=== PATIENT | female | born 1955 | race Caucasian/White ===

== ENCOUNTER 2019-05-18 13:58 | Outpatient (CLI) | payer MEDICARE, OTHER ==
--- NOTE | 2019-05-18 14:48 | MMO ---
Bilateral MAMMO Bilat Screen [facility]. CLINICAL HISTORY: Patient is 64 years old and is seen for screening. The patient has no family history of breast cancer. The patient has no personal history of cancer. The patient has a history of bilateral Implants in 1997. VIEWS: The views performed were: bilateral craniocaudal with tomosynthesis and bilateral mediolateral oblique with tomosynthesis. FILMS COMPARED: The present examination has been compared to a prior imaging study performed at [facility] on 05/27/2017. This study has been interpreted with the assistance of computer-aided detection. MAMMOGRAM FINDINGS: There are scattered fibroglandular densities. Finding 1: There are calcified implants seen in both breasts. Finding 2: There are stable benign appearing calcifications seen in both breasts. There are no suspicious masses, suspicious calcifications, or new areas of architectural distortion. IMPRESSION: THERE IS NO MAMMOGRAPHIC EVIDENCE OF MALIGNANCY. A ROUTINE FOLLOW-UP MAMMOGRAM IN 1 YEAR IS RECOMMENDED. THE RESULTS OF THIS EXAM WERE SENT TO THE PATIENT. ACR BI-RADS Category 2 - Benign finding MAMMOGRAPHY NOTE: 1. A negative mammogram report should not delay a biopsy if a dominant of clinically suspicious mass is present. 2. Approximately 10% to 15% of breast cancers are not detected by mammography. 3. Adenosis and dense breasts may obscure an underlying neoplasm. Reported by: SACHIN PALUMBO MD Electonically Signed: [id number]
== END 2019-05-18 13:59 | disposition home or self-care (01) ==
LOC: BICMAMMO 13:58
PROVIDERS: ATTEND Internal Medicine
DX: Z12.31 Encounter for screening mammogram for malignant neoplasm of breast (principal); Z98.82 Breast implant status
CPT/HCPCS: 77063; 77067

== ENCOUNTER 2019-06-10 12:49 | Emergency (ER) | payer MEDICARE, OTHER ==
[2019-06-10] MEDS ORDERED: Diazepam 5 MG TAB ONE (13:13)
[2019-06-10] MEDS ORDERED: Ketorolac Tromethamine 30 MG/ML VIAL ONE ×2 (13:19→14:50)
[2019-06-10] MEDS ORDERED: Morphine 4 MG/ML VIAL ONE ×2 (13:19→14:51)
--- NOTE | 2019-06-10 13:20 | RAD ---
Chest AP view INDICATION: Chest pain and neck pain COMPARISON: None FINDINGS: Lungs:The lungs are clear. There are bilateral partially calcified breast implants. Cardiac silhouette:The cardiomediastinal silhouette appears within normal limits. Pulmonary vasculature:Normal Pleural spaces:No pleural effusion or pneumothorax is demonstrated. Upper abdomen:No abnormality seen. Osseous structures: No acute osseous abnormality. Additional findings:Mild vascular calcification of the aortic arch. IMPRESSION: No acute cardiopulmonary abnormality.
--- NOTE | 2019-06-10 14:12 | CT ---
CT cervical spine without contrast: Multiple axial tones obtained through cervical spine with multiplanar reconstruction. INDICATIONS: Neck pain COMPARISON: none FINDINGS: Cervical vertebra maintain normal height. Slight anterolisthesis at C3-4. Facet hypertrophy. Disc space narrowing degenerative change noted at C5-6. No evidence of fracture. Posterior spondylosis at C5-6 effaces anterior subarachnoid space. Posterior elements are normally aligned. IMPRESSION: Degenerative changes, most pronounced at C5-6. No acute abnormality.
--- NOTE | 2019-06-12 21:19 | EKG ---
Test Reason : Blood Pressure : / mmHG Vent. Rate : 091 BPM Atrial Rate : 091 BPM P-R Int : 144 ms QRS Dur : 080 ms QT Int : 380 ms P-R-T Axes : 038 -62 038 degrees QTc Int : 467 ms Sinus rhythm with Premature atrial complexes Left anterior fascicular block Cannot rule out Anterior infarct , age undetermined Abnormal ECG Similar to 16-NOV-2015 Confirmed by JULISA MCDANIELS DO ([id number]), book or script editor RYAN GARCIA ([id number]) on 06/12/2019 9:19:05 PM Referred By: Confirmed By:JULISA MCDANIELS DO
== END 2019-06-10 15:08 | disposition home or self-care (01) ==
LOC: ERS 12:49
DX: M54.2 Cervicalgia (principal); I10 Essential (primary) hypertension; F17.210 Nicotine dependence, cigarettes, uncomplicated; Z79.899 Other long term (current) drug therapy
CPT/HCPCS: 71045; 72125; 93005; 96372; J1885; J2270

== ENCOUNTER 2020-12-20 12:02 | Outpatient (CLI) | payer MEDICARE ==
[2020-12-20 13:57] LABS: PTT 27.8 sec (22.0-33.0); Prothrombin Time 11.4 sec (9.5-12.1)
[2020-12-20 14:20] LABS: Platelet Count 190 thou/uL (130-400)
[2020-12-20 14:22] LABS: Hemoglobin 13.8 g/dL (12.0-15.5); Mean Corpuscular HGB CONC 31.9 g/dL (32.0-36.0); Mean Corpuscular Hemoglobin 30.5 pg (27.0-33.0); Mean Corpuscular Volume 95.8 fl (81.6-98.3); Mean Platelet Volume 10.3 fl (7.4-10.4); Platelet Count 187 10x3/uL (150-450); RBC Distribution Width 16.9 % (11.5-14.5); Red Blood Cell (RBC) Count 4.52 10x6/uL (3.90-5.03); White Blood Cell (WBC) Count 4.5 10x3/uL (3.5-10.5)
[2020-12-20 14:23] LABS: Anion Gap 19 mmol/L (10-20); BUN (Urea Nitrogen) 9 mg/dL (9.8-20.1); Calc. Creatinine Clearance 0 mL/min (70-130); Calcium 9.3 mg/dL (7.8-10.44); Carbon Dioxide 23 mmol/L (23-31); Chloride 101 mmol/L (98-107); Glucose 100 mg/dL (80-115); Potassium 4.1 mmol/L (3.5-5.1); Sodium 139 mmol/L (136-145)
[2020-12-20 14:47] LABS: EPI 133 SEC (67-199)
[2020-12-20 21:38] LABS: SARS-CoV-2 PCR by NAA Not Detected (NotDetected)
== END 2020-12-20 12:03 | disposition home or self-care (01) ==
LOC: LABBT 12:02
PROVIDERS: ATTEND Urology
DX: Z01.818 Encounter for other preprocedural examination (principal); N20.1 Calculus of ureter; Z20.822 Contact with and (suspected) exposure to COVID-19
CPT/HCPCS: 80048; 85027; 85576; 85610; 85730; 93005; U0003; U0005; 93010

== ENCOUNTER 2020-12-25 09:02 | Day surgery (SDC) | payer MEDICARE ==
[2020-12-25] MEDS ORDERED: Methylene Blue 50 MG/10 ML AMPUL ONE (09:36)
[2020-12-25] MEDS ORDERED: Midazolam HCl 2 mg/2 ml Vial ONE (09:36)
[2020-12-25] MEDS ORDERED: Fentanyl 100 MCG/2 ML VIAL ONE (09:36)
[2020-12-25] MEDS ORDERED: Iothalamate Meglumine 60% 50 ML VIAL FS ONE (11:37)
[2020-12-25] MEDS ORDERED: Rocuronium Bromide 10 MG/ML (10ML VIAL) ONE (11:55)
[2020-12-25] MEDS ORDERED: PROPOFOL 200 MG/20 ML VIAL ONE (11:55)
[2020-12-25] MEDS ORDERED: Dexamethasone 20 MG/5 ML VIAL ONE (11:55)
[2020-12-25] MEDS ORDERED: Albuterol Sulfate HFA (OR ONLY) ONE (12:45)
[2020-12-25] MEDS ORDERED: traMADol HCl 50 MG TAB ONE (15:16)
== END 2020-12-25 16:07 | disposition home or self-care (01) ==
LOC: SDC 09:02
PROVIDERS: ATTEND Urology
PROC: 0TF7XZZ Fragmentation in Left Ureter, External Approach (ICD-10-PCS; principal; 2020-12-25)
PROC: 0T778DZ Dilation of Left Ureter with Intraluminal Device, Via Natural or Artificial Opening Endoscopic (ICD-10-PCS; 2020-12-25)
DX: N20.1 Calculus of ureter (principal); I10 Essential (primary) hypertension; Z79.899 Other long term (current) drug therapy
CPT/HCPCS: 50590; 52332; 74018; C2617; Q9961; J0690; J1100; J2250; J2704; J3010; Q9968

== ENCOUNTER 2021-01-08 10:32 | Outpatient (CLI) | payer MEDICARE ==
[2021-01-08 12:20] LABS: Anion Gap 21 mmol/L (10-20); BUN (Urea Nitrogen) 13 mg/dL (9.8-20.1); Calc. Creatinine Clearance 0 mL/min (70-130); Calcium 9.6 mg/dL (7.8-10.44); Carbon Dioxide 21 mmol/L (23-31); Chloride 104 mmol/L (98-107); Glucose 92 mg/dL (80-115); Potassium 4.2 mmol/L (3.5-5.1); Sodium 142 mmol/L (136-145)
[2021-01-08 12:37] LABS: Hemoglobin 12.8 g/dL (12.0-15.5); Mean Corpuscular HGB CONC 31.4 g/dL (32.0-36.0); Mean Corpuscular Hemoglobin 31.1 pg (27.0-33.0); Mean Platelet Volume 10.7 fl (7.4-10.4); Platelet Count 177 10x3/uL (150-450); RBC Distribution Width 15.7 % (11.5-14.5); Red Blood Cell (RBC) Count 4.11 10x6/uL (3.90-5.03); White Blood Cell (WBC) Count 4.5 10x3/uL (3.5-10.5)
[2021-01-08 12:42] LABS: PTT 26.8 sec (22.0-33.0); Prothrombin Time 11.5 sec (9.5-12.1)
[2021-01-08 19:51] LABS: SARS-CoV-2 PCR by NAA Not Detected (NotDetected)
== END 2021-01-08 10:33 | disposition home or self-care (01) ==
LOC: LABBT 10:32
PROVIDERS: ATTEND Urology
DX: Z01.812 Encounter for preprocedural laboratory examination (principal); N20.1 Calculus of ureter; Z20.822 Contact with and (suspected) exposure to COVID-19
CPT/HCPCS: 80048; 85027; 85610; 85730; U0003; U0005

== ENCOUNTER 2021-01-11 10:08 | Day surgery (SDC) | payer MEDICARE ==
[2021-01-10 11:02] VITALS: BMI 28.7
[2021-01-11] MEDS ORDERED: Levofloxacin 500 mg/D5W 100 ml Premix Bag ONE (10:44)
[2021-01-11] MEDS ORDERED: Iothalamate Meglumine 60% 50 ML VIAL FS ONE (13:14)
[2021-01-11] MEDS ORDERED: Midazolam HCl 2 mg/2 ml Vial ONE (13:34)
[2021-01-11] MEDS ORDERED: Fentanyl 100 MCG/2 ML VIAL ONE ×3 (13:34→15:55)
[2021-01-11] MEDS ORDERED: Dexamethasone 20 MG/5 ML VIAL ONE (13:40)
[2021-01-11] MEDS ORDERED: PROPOFOL 200 MG/20 ML VIAL ONE (13:40)
[2021-01-11] MEDS ORDERED: Ondansetron PF 4 MG/2 ML Vial ONE (13:40)
[2021-01-11] MEDS ORDERED: traMADol HCl 50 MG TAB ONE (16:55)
== END 2021-01-11 17:30 | disposition home or self-care (01) ==
LOC: SDC 10:08
PROVIDERS: ATTEND Urology
PROC: 0TC78ZZ Extirpation of Matter from Left Ureter, Via Natural or Artificial Opening Endoscopic (ICD-10-PCS; principal; 2021-01-11)
PROC: 0T778DZ Dilation of Left Ureter with Intraluminal Device, Via Natural or Artificial Opening Endoscopic (ICD-10-PCS; 2021-01-11)
DX: N13.2 Hydronephrosis with renal and ureteral calculous obstruction (principal); N21.0 Calculus in bladder; I10 Essential (primary) hypertension; Z79.2 Long term (current) use of antibiotics; Z79.899 Other long term (current) drug therapy
CPT/HCPCS: 52356; 74018; 74420; Q9961; 82365; 88300; C2617; J1100; J1956; J2250; J2405; J2704; J3010

== ENCOUNTER 2021-03-16 10:49 | Day surgery (SDC) | payer MEDICARE ==
[2021-03-15 09:52] VITALS: BMI 29.2
[~2021-03-16 10:49] MED LIST: Sodium Chloride 0.9% 0 ML ONE; Sodium Chloride 0.9% 10 ML ONE; cefOXitin Sodium/Dextrose 2 GM/50 ML BAG ONE
[2021-03-16] MEDS ORDERED: Dexamethasone 20 MG/5 ML VIAL ONE (11:22)
[2021-03-16] MEDS ORDERED: Lidocaine 1% PF 5 ML VIAL ONE (11:22)
[2021-03-16] MEDS ORDERED: PROPOFOL 200 MG/20 ML VIAL ONE (11:22)
[2021-03-16] MEDS ORDERED: Ondansetron PF 4 MG/2 ML Vial ONE (11:22)
[2021-03-16] MEDS ORDERED: Rocuronium Bromide 10 MG/ML (10ML VIAL) ONE (11:22)
[2021-03-16] MEDS ORDERED: Midazolam HCl 2 mg/2 ml Vial ONE (11:25)
[2021-03-16] MEDS ORDERED: Fentanyl 100 MCG/2 ML VIAL ONE ×4 (11:25→13:27)
[2021-03-16] MEDS ORDERED: Bupivacaine 0.25% HCL 30 ML VIAL ONE (11:28)
[2021-03-16] MEDS ORDERED: Bacitracin Zinc Ointment 30 gm TUBE ONE (11:28)
[2021-03-16] MEDS ORDERED: Lidocaine 1% w/Epinephrine 1:100K 30 ML VIAL ONE (11:28)
[2021-03-16] MEDS ORDERED: HYDROcodone/Acetaminophen 5/325 mg Tablet ONE (13:56)
== END 2021-03-16 14:37 | disposition home or self-care (01) ==
LOC: SDC 10:49
PROVIDERS: ATTEND Surgery
PROC: 06BY0ZC Excision of Hemorrhoidal Plexus, Open Approach (ICD-10-PCS; principal; 2021-03-16)
DX: K64.2 Third degree hemorrhoids (principal); K64.4 Residual hemorrhoidal skin tags; I10 Essential (primary) hypertension; F17.200 Nicotine dependence, unspecified, uncomplicated; Z79.899 Other long term (current) drug therapy; Z98.890 Other specified postprocedural states
CPT/HCPCS: 88304; J0694; J1100; J2250; J2405; J2704; J3010; J3490; S0020

== ENCOUNTER 2021-05-01 14:23 | Emergency (ER) | payer MEDICARE ==
[~2021-05-01 14:23] MED LIST changes: +Iopamidol-370 76% 500 ML 1 ML ONE; -Sodium Chloride 0.9% 0 ML ONE; -Sodium Chloride 0.9% 10 ML ONE; -cefOXitin Sodium/Dextrose 2 GM/50 ML BAG ONE
[2021-05-01 15:07] LABS: Actual Bicarbonate (HCO3a) 13.4 mEq/L (22-28); Analyzer IN Cardio ER; Base Excess (BEa) -8.7 mEq/L (-2.0 to +3.0); Calcium, Ionized (arterial) 1.09 mmol/L (1.12-1.30); Carboxyhemoglobin (COHb) 2.1 gm% (0.0-3.0); Hemoglobin (Hb) 11.2 g/dL (12.0-16.0); O2 Tension (PaO2), arterial 73.4 mmHg (> 80.0); Potassium - ABG Lab 4.47 mmol/L (3.70-5.30); pH, Arterial 7.44 (7.35-7.45)
[2021-05-01 15:08] LABS: CO2 Tension 20.1 mmHg (35.0-45.0)
[2021-05-01] MEDS ORDERED: Ketorolac Tromethamine 30 MG/ML VIAL ONE (15:08)
[2021-05-01] MEDS ORDERED: Metoclopramide 10 MG/10 ML UDCUP ONE (15:08)
[2021-05-01] MEDS ORDERED: Morphine 4 MG/ML VIAL ONE (15:08)
[2021-05-01] MEDS ORDERED: Metoclopramide HCl 10 MG/2 ML VIAL ONE (15:09)
[2021-05-01 15:11] LABS: Puncture Site RBA
[2021-05-01 15:22] LABS: #Basophils 0.1 thou/uL (0.0-0.2); #Lymphocytes 1.5 thou/uL (1.20-3.40); #Neutrophils 7.5 thou/uL (1.40-6.50); %Basophils 0.6 % (0.0-1.0); %Eosinophils 0.1 % (0.0-10.0); %Lymphocytes 14.7 % (21.0-51.0); %Monocytes 10.1 % (0.0-10.0); %Neutrophils 74.5 % (42.0-75.0); Hemoglobin 12.2 g/dL (12.0-16.0); Mean Corpuscular HGB CONC 33.2 g/dL (32.0-36.0); Mean Corpuscular Hemoglobin 32.5 pg (27.0-31.0); Mean Platelet Volume 7.6 fL (7.4-10.4); Platelet Count 233 thou/uL (130-400); RBC Distribution Width 14.3 % (11.5-14.5); Red Blood Cell (RBC) Count 3.75 mill/uL (4.20-5.40)
[2021-05-01 15:37] LABS: ALT (SGPT) 14 U/L (8-55); AST (SGOT) 17 U/L (5-34); Albumin 3.9 g/dL (3.4-4.8); Alkaline Phosphatase 93 U/L (40-110); Anion Gap 24 mmol/L (10-20); BUN (Urea Nitrogen) 12 mg/dL (9.8-20.1); Calc. Creatinine Clearance 0 mL/min (70-130); Calcium 8.5 mg/dL (7.8-10.44); Carbon Dioxide 16 mmol/L (23-31); Chloride 101 mmol/L (98-107); Globulin 2.6 g/dL (2.4-3.5); Glucose 85 mg/dL (80-115); Lipase 24 U/L (8-78); Potassium 4.7 mmol/L (3.5-5.1); Protein, Total 6.5 g/dL (5.8-8.1); Sodium 136 mmol/L (136-145)
[2021-05-01] MEDS ORDERED: Ondansetron PF 4 MG/2 ML Vial ONE (16:36)
[2021-05-01] MEDS ORDERED: Midazolam HCl 2 mg/2 ml Vial ONE (16:36)
[2021-05-01] MEDS ORDERED: Sucralfate 1 GM/10 ML UDCUP ONE (16:48)
[2021-05-01] MEDS ORDERED: Famotidine/PF 20 mg/2ml Vial ONE (16:48)
[2021-05-01 16:59] LABS: Bilirubin 1+ (Negative); Blood, Urine Negative (Negative); Clarity Clear (Clear); Glucose, Urine (Dipstick) Normal (Negative); Ketone, Urine 100 mg/dL (Negative); Leukocyte 250 Leu/uL (Negative); Nitrite Negative (Negative); Protein, Urine (Dipstick) 30 mg/dL (Neg-Trace); RBC/HPF 0-3 HPF (0-3); Specific Gravity, Urine 1.047 (1.002-1.036); pH, Urine 5.5 (5.0-9.0)
[2021-05-01 17:06] LABS: Bacteria/HPF 1+ HPF (None Seen); Yeast-Budding Rare HPF (None Seen); Yeast-Hyphae 1+ HPF (None Seen)
== END 2021-05-01 18:25 | disposition home or self-care (01) ==
LOC: ERS 14:23
DX: K29.00 Acute gastritis without bleeding (principal); B37.3 Candidiasis of vulva and vagina; N39.0 Urinary tract infection, site not specified; E86.0 Dehydration; I10 Essential (primary) hypertension; D58.9 Hereditary hemolytic anemia, unspecified; F17.210 Nicotine dependence, cigarettes, uncomplicated; Z79.899 Other long term (current) drug therapy
CPT/HCPCS: 36415; 36600; 71045; 74177; 76705; 80053; 81003; 81015; 82805; 83690; 84484; 85025; 93005; 96374; 96375; J1885; J2250; J2270; J2405; J2765; S0028

== ENCOUNTER 2021-11-18 20:51 | Inpatient (IN) | payer MEDICARE ==
[2021-11-18 21:41] LABS: #Basophils 0.1 thou/uL (0.0-0.2); #Lymphocytes 1.1 thou/uL (1.20-3.40); #Monocytes 0.4 thou/uL (0.11-0.59); #Neutrophils 2.8 thou/uL (1.40-6.50); %Basophils 1.7 % (0.0-1.0); %Eosinophils 0.5 % (0.0-10.0); %Lymphocytes 24.7 % (21.0-51.0); %Monocytes 8.7 % (0.0-10.0); %Neutrophils 64.4 % (42.0-75.0); Mean Corpuscular HGB CONC 32.6 g/dL (32.0-36.0); Mean Corpuscular Hemoglobin 33.7 pg (27.0-31.0); Mean Platelet Volume 7.4 fL (7.4-10.4); Platelet Count 159 thou/uL (130-400); RBC Distribution Width 12.9 % (11.5-14.5); Red Blood Cell (RBC) Count 3.56 mill/uL (4.20-5.40); White Blood Cell (WBC) Count 4.3 thou/uL (4.8-10.8)
[2021-11-18 22:01] LABS: ALT (SGPT) 22 U/L (8-55); AST (SGOT) 31 U/L (5-34); Albumin 4.2 g/dL (3.4-4.8); Alkaline Phosphatase 72 U/L (40-110); Anion Gap 25 mmol/L (10-20); BUN (Urea Nitrogen) 13 mg/dL (9.8-20.1); Calc. Creatinine Clearance 0 mL/min (70-130); Calcium 8.1 mg/dL (7.8-10.44); Carbon Dioxide 15 mmol/L (23-31); Chloride 99 mmol/L (98-107); Globulin 2.1 g/dL (2.4-3.5); Potassium 4.7 mmol/L (3.5-5.1); Protein, Total 6.3 g/dL (5.8-8.1); Sodium 134 mmol/L (136-145)
[2021-11-18 22:02] LABS: CK (CPK) 33 U/L (29-168); CRP (Inflammatory) Less than 0.50 mg/dL (= or < 0.5)
[2021-11-18 22:09] LABS: Glucose 59 mg/dL (80-115)
[2021-11-18 22:33] LABS: Bilirubin Negative (Negative); Blood, Urine Negative (Negative); Clarity Turbid (Clear); Glucose, Urine (Dipstick) Normal (Negative); Ketone, Urine 80 mg/dL (Negative); Leukocyte 250 Leu/uL (Negative); Nitrite Negative (Negative); Protein, Urine (Dipstick) Negative (Neg-Trace); RBC/HPF 0-3 HPF (0-3); Specific Gravity, Urine 1.009 (1.002-1.036); Urobilinogen Normal mg/dL (Less than 2); Yeast-Hyphae Rare HPF (None Seen)
[2021-11-18 22:39] LABS: Bacteria/HPF 2+ HPF (None Seen)
[2021-11-18 22:40] LABS: Yeast-Budding 2+ HPF (None Seen)
[2021-11-18] MEDS ORDERED: Ondansetron PF 4 MG/2 ML Vial ONE (23:01)
[2021-11-18] MEDS ORDERED: cefTRIAXone\\ROCEPHIN 1 GM VIAL ONE (23:47)
[2021-11-19 00:14] LABS: Acetaminophen Less than 10.0 mcg/mL (10.0-30.0); Alcohol Less than 10 mg/dL (Less than 10); Salicylate Less than 8.0 mg/dL (15.0-30.0)
[2021-11-19 00:46] LABS: Amphetamine Not Detected (NotDetected); Barbiturates Screen Not Detected (NotDetected); Benzodiazepine Screen Not Detected (NotDetected); Cocaine Metabolite Screen Detected (NotDetected); Methadone Not Detected (NotDetected); Methamphetamine Not Detected (NotDetected); Opiate Screen Not Detected (NotDetected); Oxycodone Screen Not Detected (NotDetected); Phencyclidine (PCP) Not Detected (NotDetected); THC/Cannabinoid Screen Not Detected (NotDetected); Tricyclic Screen Not Detected (NotDetected)
[2021-11-19] MEDS ORDERED: Acetaminophen 325 MG TAB PO PRN (01:15)
[2021-11-19] MEDS ORDERED: Ondansetron ODT 4 MG TAB SL PRN (01:15)
[2021-11-19] MEDS ORDERED: Ondansetron PF 4 MG/2 ML Vial IVP PRN (01:15)
[2021-11-19] MEDS ORDERED: Sodium Chloride 0.9% 1,000 ML IV SCH (01:15)
[2021-11-19 01:16] LABS: Troponin I Less than 0.010 ng/mL (< 0.028)
[2021-11-19 01:32] VITALS: BMI 30.8
[2021-11-19] MEDS ORDERED: Dextrose 5% in Water 1,000 ML IV PRN (01:38)
[2021-11-19] MEDS ORDERED: Guaifenesin DM 100-10/5 ML UDCUP PO PRN (01:38)
[2021-11-19] MEDS ORDERED: HumaLOG 300 UNITS/3 ML VIAL SC PRN (01:38)
[2021-11-19] MEDS ORDERED: Dextrose 50% Abboject 50 ML SYRINGE SLOW IVP PRN (01:38)
[2021-11-19] MEDS ORDERED: Zolpidem Tartrate 5 MG TAB PO PRN (01:38)
[2021-11-19] MEDS ORDERED: ALPRAZolam 0.25 MG TAB PO PRN (01:40)
[2021-11-19] MEDS ORDERED: hydrALAZINE 20 MG/ML VIAL SLOW IVP PRN (01:44)
[2021-11-19] MEDS ORDERED: Morphine 2 MG/ML VIAL SLOW IVP PRN (01:44)
[2021-11-19] MEDS ORDERED: Lorazepam 2 MG/ML VIAL SLOW IVP PRN (02:30)
[2021-11-19 02:49] LABS: Anion Gap 20 mmol/L (10-20); BUN (Urea Nitrogen) 13 mg/dL (9.8-20.1); Calc. Creatinine Clearance 66 mL/min (70-130); Calcium 7.7 mg/dL (7.8-10.44); Carbon Dioxide 22 mmol/L (23-31); Chloride 98 mmol/L (98-107); Glucose 176 mg/dL (80-115); Potassium 4.7 mmol/L (3.5-5.1); Sodium 135 mmol/L (136-145)
[2021-11-19 02:52] LABS: Troponin I 0.012 ng/mL (< 0.028)
[2021-11-19 03:51] LABS: #Lymphocytes 1.4 thou/uL (1.20-3.40); #Monocytes 0.4 thou/uL (0.11-0.59); #Neutrophils 3.7 thou/uL (1.40-6.50); %Basophils 0.6 % (0.0-1.0); %Eosinophils 0.6 % (0.0-10.0); %Lymphocytes 25.7 % (21.0-51.0); %Monocytes 6.5 % (0.0-10.0); %Neutrophils 66.6 % (42.0-75.0); Hemoglobin 11.6 g/dL (12.0-16.0); Mean Corpuscular HGB CONC 32.2 g/dL (32.0-36.0); Mean Corpuscular Hemoglobin 33.4 pg (27.0-31.0); Mean Platelet Volume 7.7 fL (7.4-10.4); Platelet Count 152 thou/uL (130-400); RBC Distribution Width 12.9 % (11.5-14.5); Red Blood Cell (RBC) Count 3.47 mill/uL (4.20-5.40); White Blood Cell (WBC) Count 5.5 thou/uL (4.8-10.8)
[2021-11-19 04:17] LABS: ALT (SGPT) 22 U/L (8-55); AST (SGOT) 28 U/L (5-34); Alkaline Phosphatase 72 U/L (40-110); Anion Gap 20 mmol/L (10-20); BUN (Urea Nitrogen) 12 mg/dL (9.8-20.1); Bilirubin, Total 1.4 mg/dL (0.2-1.2); Calc. Creatinine Clearance 67 mL/min (70-130); Calcium 8.1 mg/dL (7.8-10.44); Carbon Dioxide 22 mmol/L (23-31); Chloride 98 mmol/L (98-107); Globulin 2.2 g/dL (2.4-3.5); Glucose 138 mg/dL (80-115); Potassium 4.2 mmol/L (3.5-5.1); Protein, Total 6.2 g/dL (5.8-8.1); Sodium 136 mmol/L (136-145)
[2021-11-19 04:19] LABS: Troponin I Less than 0.010 ng/mL (< 0.028)
[2021-11-19 05:55] LABS: SARS-CoV-2 NAA Rapid Test Not Detected (NotDetected)
[2021-11-19] MEDS ORDERED: Potassium Chloride 20 MEQ TAB PO SCH (08:00)
[2021-11-19] MEDS ORDERED: Nicotine 21 MG PATCH TD SCH (09:00)
[2021-11-19] MEDS ORDERED: Enoxaparin Sodium 30 MG/0.3 ML SYRINGE SC SCH (09:00)
[2021-11-19] MEDS ORDERED: Verapamil 120 MG TAB PO SCH (09:00)
[2021-11-19] MEDS ORDERED: Metoprolol Tartrate 25 MG TAB PO SCH (09:00)
[2021-11-19 13:23] LABS: Anion Gap 16 mmol/L (10-20); BUN (Urea Nitrogen) 11 mg/dL (9.8-20.1); Calc. Creatinine Clearance 75 mL/min (70-130); Calcium 8.6 mg/dL (7.8-10.44); Carbon Dioxide 21 mmol/L (23-31); Chloride 103 mmol/L (98-107); Glucose 127 mg/dL (80-115); Sodium 136 mmol/L (136-145)
[2021-11-19 13:24] LABS: Troponin I Less than 0.010 ng/mL (< 0.028)
[2021-11-19 15:30] VITALS: TEMP 97.3
[2021-11-19] MEDS ORDERED: cefTRIAXone\\ROCEPHIN 1 GM in Sodium Chloride 0.9% 100 ML IVPB SCH (23:59)
== END 2021-11-19 15:56 | disposition home or self-care (01) | DRG 918 ==
LOC: ERS 20:51 → IMCU/EMU 11-19 00:07
PROVIDERS: ADMIT Internal Medicine; ATTEND Internal Medicine
DX: T51.0X1A Toxic effect of ethanol, accidental (unintentional), initial encounter (principal); N39.0 Urinary tract infection, site not specified; E87.2 Acidosis; D74.9 Methemoglobinemia, unspecified; E16.2 Hypoglycemia, unspecified; Z20.822 Contact with and (suspected) exposure to COVID-19; T73.0XXA Starvation, initial encounter; F17.210 Nicotine dependence, cigarettes, uncomplicated; I10 Essential (primary) hypertension; F10.10 Alcohol abuse, uncomplicated; E86.9 Volume depletion, unspecified; F14.10 Cocaine abuse, uncomplicated; R00.1 Bradycardia, unspecified; E88.89 Other specified metabolic disorders; Z79.899 Other long term (current) drug therapy; Z82.49 Family history of ischemic heart disease and other diseases of the circulatory system
CPT/HCPCS: 36415; 36416; 71045; 80053; 80306; 80307; 81003; 81015; 82550; 83605; 83880; 84443; 84484; 85025; 86140; 87040; 87086; 93005; 93010; J0696; J1610; J1650; J2405; J7050; U0002

== ENCOUNTER 2023-05-27 15:14 | Emergency (ER) | payer MEDICARE ==
[2023-05-27] MEDS ORDERED: Ondansetron PF 4 MG/2 ML Vial ONE (15:20)
[2023-05-27 17:22] LABS: #Monocytes 0.5 thou/uL (0.11-0.59); #Neutrophils 5.7 thou/uL (1.40-6.50); %Basophils 0.3 % (0.0-1.0); %Eosinophils 0.4 % (0.0-10.0); %Lymphocytes 18.1 % (21.0-51.0); %Monocytes 6.8 % (0.0-10.0); %Neutrophils 73.9 % (42.0-75.0); Hematocrit 35.4 % (36.0-47.0); Hemoglobin 11.1 g/dL (12.0-16.0); Mean Corpuscular HGB CONC 31.4 g/dL (32.0-36.0); Mean Corpuscular Hemoglobin 30.7 pg (27.0-31.0); Mean Corpuscular Volume 98.1 fl (78.0-98.0); Mean Platelet Volume 10.7 fL (7.4-10.4); Platelet Count 194 10x3/uL (130-400); Red Blood Cell (RBC) Count 3.61 mill/uL (4.20-5.40); White Blood Cell (WBC) Count 7.8 10x3/uL (4.8-10.8)
[2023-05-27 17:49] LABS: ALT (SGPT) 21 U/L (8-55); AST (SGOT) 17 U/L (5-34); Albumin 3.8 g/dL (3.4-4.8); Alkaline Phosphatase 66 U/L (40-110); Anion Gap 15 mmol/L (10-20); BUN (Urea Nitrogen) 16 mg/dL (9.8-20.1); Bilirubin, Total 0.7 mg/dL (0.2-1.2); CK (CPK) 27 U/L (29-168); Calc. Creatinine Clearance 0 mL/min (70-130); Calcium 9.3 mg/dL (7.8-10.44); Carbon Dioxide 21 mmol/L (23-31); Chloride 109 mmol/L (98-107); Estimated GFR 90; Globulin 2.2 g/dL (2.4-3.5); Glucose 93 mg/dL (80-115); Lipase 41 U/L (8-78); Potassium 3.5 mmol/L (3.5-5.1); Sodium 141 mmol/L (136-145); Troponin I Less than 0.010 ng/mL (< 0.028)
[2023-05-27 18:56] LABS: Amphetamine Not Detected (NotDetected); Barbiturates Screen Not Detected (NotDetected); Benzodiazepine Screen Detected (NotDetected); Cocaine Metabolite Screen Not Detected (NotDetected); Methadone Not Detected (NotDetected); Methamphetamine Not Detected (NotDetected); Opiate Screen Not Detected (NotDetected); Oxycodone Screen Not Detected (NotDetected); Phencyclidine (PCP) Not Detected (NotDetected); THC/Cannabinoid Screen Detected (NotDetected); Tricyclic Screen Not Detected (NotDetected)
== END 2023-05-27 20:53 | disposition home or self-care (01) ==
LOC: ERS 15:14
DX: M62.81 Muscle weakness (generalized) (principal); R29.6 Repeated falls; F17.210 Nicotine dependence, cigarettes, uncomplicated; I10 Essential (primary) hypertension; Z79.899 Other long term (current) drug therapy; Z79.82 Long term (current) use of aspirin
CPT/HCPCS: 36415; 70450; 71045; 71260; 72125; 74177; 80053; 80306; 82550; 83690; 84484; 85025; 93005; J2405

== ENCOUNTER 2023-06-09 12:40 | Outpatient (CLI) | payer MEDICARE | END 2023-06-09 12:41 | disposition home or self-care (01) | LOC: BICMAMMO 12:40 | PROVIDERS: ATTEND Internal Medicine | DX: Z12.31 Encounter for screening mammogram for malignant neoplasm of breast (principal); Z98.82 Breast implant status | CPT/HCPCS: 77063; 77067 ==